=== PATIENT | female | born 1970 | race Caucasian/White ===

== ENCOUNTER 2021-06-07 18:34 | Emergency (ER) | payer OTHER ==
[~2021-06-07] VITALS: Ht 167.6 cm; Wt 78.1 kg
[2021-06-07] MEDS ORDERED: MORPHINE SULFATE 10 MG/ML SYRINGE. IV ONE (19:15)
[2021-06-07] MEDS ORDERED: IOHEXOL 300 MG/ML 75 ML VIAL. IV ONE (19:30)
[2021-06-07] MEDS ORDERED: MORPHINE SULFATE 10 MG/ML SYRINGE. SQ ONE (19:45)
[2021-06-07 20:10] LABS: CALCIUM 8.9 mg/dL (8.5-10.1); CREATININE 0.6 mg/dL (0.6-1.0); POTASSIUM 3.6 mmol/L (3.5-5.1)
[2021-06-07 20:13] LABS: BASO % 0 % (0-3); EOS % 1 % (0-3); HEMATOCRIT 40.4 % (36.0-47.0); HEMOGLOBIN 13.3 g/dL (12.0-15.5); LYMPH # 1.7 x10^3/uL (1.0-4.8); LYMPH % 22 % (24-48); MEAN CORPUSCULAR HEMOGLOBIN 30 pg (25-35); MEAN CORPUSCULAR HGB CONC 33 g/dL (31-37); MEAN CORPUSCULAR VOLUME 90 fL (79-100); MONO # 0.4 x10^3/uL (0.0-1.1); MONO % 6 % (0-9); NEUT # 5.6 x10^3uL (1.8-7.7); NEUT % 71 % (31-73); PLATELET COUNT 230 x10^3/uL (140-400); RED BLOOD COUNT 4.47 x10^6/uL (3.50-5.40); RED CELL DISTRIBUTION WIDTH 14.3 % (11.5-14.5); WHITE BLOOD COUNT 7.8 x10^3/uL (4.0-11.0)
[2021-06-07 20:18] LABS: ALBUMIN 3.5 g/dL (3.4-5.0); ALBUMIN/GLOBULIN RATIO 0.8 (1.0-1.7); TOTAL BILIRUBIN 0.3 mg/dL (0.2-1.0)
[2021-06-07 20:48] LABS: BARBITURATES NEG (NEG); BENZODIAZEPINES NEG (NEG); CANNABINOIDS NEG (NEG); COCAINE NEG (NEG); METHADONE NEG (NEG); OPIATES NEG (NEG); PHENCYCLIDINE NEG (NEG)
[2021-06-07 20:49] LABS: AMPHETAMINE/METHAMPHETAMINE NEG (NEG)
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
[2021-06-07 21:02] LABS: BILIRUBIN,URINE NEG (NEG); CLARITY,URINE CLEAR; COLOR,URINE YELLOW; GLUCOSE,URINE NEG (NEG); NITRITE,URINE POS (NEG)
[2021-06-07 21:03] LABS: BACTERIA,URINE MANY /HPF (0-FEW); SQUAMOUS EPITHELIAL CELL,UR MOD /LPF; WBC,URINE 20-40 /HPF (0-4)
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
[2021-06-07] MEDS ORDERED: TRAM50TA PO (21:52)
[2021-06-07] MEDS ORDERED: IBUP600T16 PO (21:52)
[2021-06-07] MEDS ORDERED: NITR100C62 PO (21:52)
[2021-06-07] MEDS ORDERED: ORPH-16 PO (21:52)
[2021-06-07] MEDS ORDERED: NITROFURANTOIN MONOHYD/M-CRYST 100 MG CAPSULE. PO ONE (22:00)
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
[2021-06-07 23:30] VITALS: BP 114/65
== END 2021-06-07 23:58 | disposition home or self-care (01) ==
LOC: ER 18:34
DX: S52.501A Unspecified fracture of the lower end of right radius, initial encounter for closed fracture (principal); S52.601A Unspecified fracture of lower end of right ulna, initial encounter for closed fracture; S80.02XA Contusion of left knee, initial encounter; S80.01XA Contusion of right knee, initial encounter; S20.219A Contusion of unspecified front wall of thorax, initial encounter; V43.62XA Car passenger injured in collision with other type car in traffic accident, initial encounter; Y93.89 Activity, other specified; Y92.410 Unspecified street and highway as the place of occurrence of the external cause; Y99.8 Other external cause status
CPT/HCPCS: 29125; 36415; 70491; 71260; 73080; 73090; 73562; 74177; 80053; 80307; 81001; 85025; 87077; 87086; 87186; 96372; 96374; 99285; J2060; J2270; Q9967

== ENCOUNTER → 2021-07-03 | Outpatient (CLI) | payer MEDICARE ==
[2021-06-07 23:30] VITALS: BP 114/65
[~2021-07-03] MED LIST: IBUP600T16 PO; NITR100C62 PO; ORPH-16 PO; TRAM50TA PO
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
== END ==
LOC: RAD 11:56
PROVIDERS: ATTEND Physician Assistant
DX: S62.91XD Unspecified fracture of right hand, subsequent encounter for fracture with routine healing (principal); M79.89 Other specified soft tissue disorders; X58.XXXD Exposure to other specified factors, subsequent encounter
CPT/HCPCS: 73110

== ENCOUNTER → 2021-07-25 | Outpatient (CLI) | payer MEDICARE ==
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
== END ==
LOC: RAD 14:47
PROVIDERS: ATTEND Physician Assistant
DX: S52.614D Nondisplaced fracture of right ulna styloid process, subsequent encounter for closed fracture with routine healing (principal); X58.XXXD Exposure to other specified factors, subsequent encounter
CPT/HCPCS: 73110

== ENCOUNTER → 2021-08-19 | Outpatient (CLI) | payer MEDICARE ==
--- NOTE | 2021-08-19 17:35 | RAD ---
EXAM: RIGHT WRIST 3 VIEWS. HISTORY: Fracture follow-up. COMPARISON: 07/25/2021. FINDINGS: A fracture of the distal radius demonstrates persistent 15 degrees dorsal inclination of th e distal radioarticular surface. Sclerosis along the fracture line is consistent with a component of healing. No solid bridging callus is yet detectable. An ulnar styloid avulsion fracture is again note d. Osteopenia is moderate. The scapholunate angle is increased. The scapholunate interval is not increased.. Soft tissue swellin g persists about the wrist. First carpometacarpal osteoarthritis is mild. IMPRESSION: 1. Healing dorsally angulated fracture of the distal radius without solid bridging yet. 2. Ulnar styloid fracture. 3. Findings consistent with dorsal intercalated segmental instability without scapholunate widening. Electronically signed by: Zena Quevedo MD (08/19/2021 5:33 PM) [id number]
== END ==
LOC: RAD 14:59
PROVIDERS: ATTEND Physician Assistant
DX: S52.611A Displaced fracture of right ulna styloid process, initial encounter for closed fracture (principal); S52.501D Unspecified fracture of the lower end of right radius, subsequent encounter for closed fracture with routine healing; M18.11 Unilateral primary osteoarthritis of first carpometacarpal joint, right hand; M79.89 Other specified soft tissue disorders; X58.XXXD Exposure to other specified factors, subsequent encounter; X58.XXXA Exposure to other specified factors, initial encounter; Y93.89 Activity, other specified; Y92.89 Other specified places as the place of occurrence of the external cause; Y99.8 Other external cause status
CPT/HCPCS: 73110